=== PATIENT | female | born 1955 | race Caucasian/White ===

== ENCOUNTER 2018-08-12 13:53 | Emergency (ER) | payer OTHER ==
[~2018-08-12] VITALS: Ht 170.1 cm; Wt 90.7 kg
[~2018-08-12 13:53] MED LIST: FLEXERIL5 MG PO; HYDROCHLOROTHIA25 M1 PO; LASIX20 MG PO; TRAMADOL HCL50 MG PO; VOLTAREN50 M1 PO
== END 2018-08-12 15:47 | disposition home or self-care (01) ==
LOC: ED 13:53
DX: S80.02XA Contusion of left knee, initial encounter (principal); Z79.899 Other long term (current) drug therapy; Z90.49 Acquired absence of other specified parts of digestive tract; V47.6XXA Car passenger injured in collision with fixed or stationary object in traffic accident, initial encounter; Y93.89 Activity, other specified; Y92.488 Other paved roadways as the place of occurrence of the external cause; Y99.8 Other external cause status